=== PATIENT | male | born 1965 | race Caucasian/White ===

== ENCOUNTER → 2017-10-04 | Outpatient (CLI) | payer OTHER ==
[2017-10-04 19:12] LABS: ALBUMIN 4.2 gm/dl (3.4-5.0); ALKALINE PHOSPHATASE 63 U/L (45-117); ALT/SGPT 27 U/L (12-78); AST/SGOT 16 U/L (15-37); BLOOD UREA NITROGEN 18 mg/dl (7-18); CALCIUM 9.3 mg/dl (8.5-10.1); CARBON DIOXIDE 28 mmol/L (21-32); CHOLESTEROL 182 mg/dl (0-200); GLUCOSE 99 mg/dl (70-99); LDL CHOLESTEROL CALCULATED 96 mg/dl; POTASSIUM 4.1 mmol/L (3.5-5.1); SODIUM 138 mmol/L (136-145); TOTAL PROTEIN 7.3 gm/dl (6.4-8.2)
[2017-10-04 21:16] LABS: BASO % 0.1 %; BASO ABS # 0.01 K/uL (0-0.2); EOS % 0.4 %; EOS ABS # 0.03 K/uL (0-0.5); HEMATOCRIT 44.5 % (42-52); HEMOGLOBIN 15.5 g/dL (14.0-18.0); IG# 0.02 K/uL (0.00-0.02); LYMPH ABS # 1.57 K/uL (1.2-3.4); MEAN CELL VOLUME 85.6 fL (80-100); MEAN CORPUSCULAR HEMOGLOBIN 29.8 pg (25-34); MEAN CORPUSCULAR HGB CONC 34.8 g/dl (32-36); MONO % 10.2 %; NEUT ABS # 5.42 K/uL (1.4-6.5); PLATELET COUNT 235 K/uL (130-400); RED CELL DISTRIBUTION WIDTH CV 12.6 % (11.5-14.5); RED CELL DISTRIBUTION WIDTH SD 39.2 fL (36.4-46.3); WHITE BLOOD COUNT 7.85 K/uL (4.8-10.8)
== END | disposition home or self-care (01) ==
LOC: C.LABSPEC 18:12
PROVIDERS: ATTEND Family Medicine
DX: Z00.00 Encounter for general adult medical examination without abnormal findings (principal)

== ENCOUNTER 2019-04-15 06:53 | Observation (INO) ==
[2019-04-15] MEDS ORDERED: SODIUM CHLORIDE 0.9% 1000ML 1,000 ML IV SCH (07:19)
--- NOTE | 2019-04-15 07:27 | Emergency Department Note ---
History of Present Illness General Chief complaint: Abdominal Pain Stated complaint: ABDOMINAL PAIN Time Seen by Provider: 04/15/19 07:02 History of Present Illness Maximum Pain Intensity: 8 Patient is an otherwise healthy 54-year-old male who presents the emergency department for evaluation of right lower quadrant pain. He reports that he has had crampy intermittent pain for about a month, but his symptoms have been worsening in the last 4 to 5 days. He states that his symptoms started with a lot of joint pain about 4 weeks ago including his knees and his elbows. He saw his primary care provider Dr. Romo last week, and had labs performed. A Lyme screen at that time was negative and he was placed on a course of prednisone. He states that he is due to finish the prednisone taper this morning. He states that the joint pain has improved on the prednisone, but the right lower quadrant pain is gotten worse. He has had difficulty sleeping over the last several evenings. He states it is a constant, cramping pain. He states that it was at its worst this morning when he was getting ready for work, rating it an 8/10. He states that on occasion if he gets up to urinate voiding will alleviate some pressure. He has tried increasing his water intake drinking cranberry juice and taking ibuprofen with minimal relief. He has not noticed any changes in his bowel movements, no melena or hematochezia. He had a colonoscopy within the last 6 years which was normal. He denies noticing any rashes, lesions or bulging in the groin or the scrotal area. He has a history of a left inguinal hernia repair and states that this is not similar. Initially he thought that his pain was a pulled muscle. He denies any associated nausea or vomiting. No dysuria. No fever or chills. Home Medications Home Medications Medication Instructions Recorded Confirmed Type ibuprofen [Advil] 400 mg PO Q6H PRN 04/15/19 04/15/19 History prednisone 10 mg PO USEASDIRECTD 04/15/19 04/15/19 History Allergies Allergy/AdvReac Type Severity Reaction Status Date / Time No Known Allergies Allergy Verified 04/15/19 07:54 Past Med/Surg History Medical History (Updated 04/15/19 @ 10:21 by Soledad James) No significant past medical history (Chronic) Surgical History (Updated 02/01/20 @ 09:46 by Lacey Lewis DO) History of colonoscopy History of left inguinal hernia repair Social History Current Living Situation: Family current occupational status: employed Feels Safe at Home: Yes Smoking Status: Former smoker Review of Systems A total of 10 systems reviewed and were otherwise negative Physical Exam Vital Signs Vital Signs - 24 hr 04/15/19 06:57 04/15/19 08:29 04/15/19 09:38 Temperature 36.5 C Temperature Source Oral Pulse Rate 76 Pulse Rate [Finger] 78 86 Respiratory Rate 20 20 20 Respiratory Effort / Characteristics Non-Labored Respiratory Depth Normal Blood Pressure 142/89 H Blood Pressure [Right Arm] 152/71 H 134/79 Blood Pressure Mean 106 Blood Pressure Mean [Right Arm] 98 97 Pulse Oximetry 98 96 98 Oxygen Delivery Method Room Air Room Air Room Air Sepsis Recent Fever Within 48 Hours No Sepsis Action Taken by Nursing No Action Required CONSTITUTIONAL: Patient is a well-appearing 54-year-old male who is awake and alert and in no acute distress. EYES: Pupils equal, round, reactive to light and accommodation. EOMs intact without nystagmus. Sclera are anicteric. ENT: Tympanic membranes intact, with normal landmarks. External canals are clear. Oral and nasopharynx are clear. Mucous membranes are moist, no lesions, tongue and gums appear normal. CARDIOVASCULAR: Regular rate and rhythm, with normal S1 and S2, no murmur or gallop or rub is heard. No carotid bruits auscultated. No JVD. Peripheral pulses easy to palpable. RESPIRATORY: Breath sounds equal and clear to auscultation without wheezes, rales, or rhonchi heard. Full and equal chest expansion without accessory muscle use or retractions. GI: Bowel sounds are present. Umbilical hernia noted that is soft and reducible . Abdomen is soft, nondistended, tender to percussion over the right lower quadrant and tender to palpation on the right lower quadrant with voluntary guarding.. No organomegaly. No pulsatile masses. No rebound or referred rebound tenderness. No CVA tenderness. MUSCULOSKELETAL: Full range of motion of extremities x 4 with good strength. No cyanosis, edema, joint tenderness or swelling. No deformity. INTEGUMENTARY: No lesions or rash, normal skin turgor. NEUROLOGICAL: Alert, oriented, and cooperative. Cranial nerves, sensation and strength grossly intact. Pupils round, equal, and react to light, EOMs are full. LYMPH: No lymphadenopathy. Course Course The patient was seen and assessed as above. Old records were reviewed, including his laboratory studies from 04/06/2019. He presents the emergency department for evaluation of worsening right lower quadrant pain over the last several days. IV lock was initiated and laboratory studies were collected. He was hydrated with normal saline solution. He declined any medication for discomfort. CBC, CMP and urinalysis were ordered. CT scan of the abdomen p nelly with IV contrast was obtained. Laboratory studies noted a slightly elevated white count at 12,300 with left shift and bandemia noted. Electrolytes are within normal limits. Renal functions are normal. Transaminases are not elevated and urine microscopy is clear. CT scan of the abdomen and pelvis with IV contrast noted a markedly distended appendix containing a punctate appendicolith with surrounding inflammatory change there is a question of a small microperforation without extraluminal gas identified. Laboratory and diagnostic imaging studies were reviewed with the patient. He wa s made aware that I was going to speak with general surgery. The patient was questioned and reported that he had only had half a cup of coffee with a small amount of milk and cranberry juice around 0530 today. He had not eaten any solid food since last evening. Laboratory and diagnostic imaging studies were reviewed with attending physician and surgical consultation was placed with Dr. Robyn Solis. She presented to the emergency department to assess the patient. She will take the patient to the OR for surgical intervention later this morning. Administered Medications Ioversol (Optiray 320 100ml) 92 ml IV ONCE PRN PRN Reason: Interaction Checking Stop: 04/19/19 08:20 Last Admin: 04/15/19 08:21 Dose: 92 ml Documented by: [id number] Discontinued Medications Sodium Chloride (Nss 1000ml) 1,000 mls @ 999 mls/hr IV .Q1H1M CARIN Stop: 04/15/19 08:19 Last Infusion: 04/15/19 08:33 Dose: 0 mls/hr Documented by: [id number] Admin: 04/15/19 07:32 Dose: 999 mls/hr Documented by: [id number] Medical Decision Making Differential Diagnosis Differential diagnoses include gastroenteritis, appendicitis, mesenteric ischemia, pyelonephritis, urinary tract infection, renal colic, diverticulitis, shingles, bowel obstruction, intussusception, hernia, muscle strain, among others. Medical Records Attestation: I reviewed the patient's medical records. Home Medications Current Medication List: was personally reviewed by me Laboratory Data Attestation: I reviewed the patient's lab results. Result diagrams: 04/15/19 07:31 04/15/19 07:31 Lab Results 04/15/19 04/15/19 04/15/19 Range/Units 07:31 07:31 07:31 WBC 12.32 H (4.8-10.8) K/uL RBC 5.41 (4.7-6.1) M/uL Hgb 15.9 (14.0-18.0) g/dL Hct 46.4 (42-52) % MCV 85.8 (80-100) fL MCH 29.4 (25-34) pg MCHC 34.3 (32-36) g/dL RDW Std Deviation 39.4 (36.4-46.3) fL RDW Coeff of Ramon 12.6 (11.5-14.5) % Plt Count 277 (130-400) K/uL MPV 9.6 (7.4-10.4) fL Immature Gran % (Auto) 0.4 % Neut % (Auto) 77.8 % Lymph % (Auto) 10.7 % Braxton % (Auto) 10.6 % Eos % (Auto) 0.4 % Baso % (Auto) 0.1 % Immature Gran # (Auto) 0.05 H (0.00-0.02) K/uL Neut # (Auto) 9.58 H (1.4-6.5) K/uL Lymph # (Auto) 1.32 (1.2-3.4) K/uL Braxton # (Auto) 1.31 H (0.11-0.59) K/uL Eos # (Auto) 0.05 (0-0.5) K/uL Baso # (Auto) 0.01 (0-0.2) K/uL Sodium 137 (136-145) mmol/L Potassium 4.0 (3.5-5.1) mmol/L Chloride 105 (98-107) mmol/L Carbon Dioxide 27 (21-32) mmol/L Anion Gap 5.0 (3-11) BUN 18 (7-18) mg/dl Creatinine 0.99 (0.6-1.4) mg/dl Est Cr Clr Drug Dosing 86.0 ml/min Est GFR ( Amer) 98.3 Est GFR (Non-Af Amer) 84.8 BUN/Creatinine Ratio 18.3 (10-20) Glucose 117 H (70-99) mg/dl Calcium 9.5 (8.5-10.1) mg/dl Total Bilirubin 0.4 (0.2-1) mg/dl AST 7 L (15-37) U/L ALT 19 (12-78) U/L Alkaline Phosphatase 85 (45-117) U/L Total Protein 7.1 (6.4-8.2) gm/dl Albumin 3.6 (3.4-5.0) gm/dl Globulin 3.5 (2.5-4.0) gm/dl Albumin/Globulin Ratio 1.0 (0.9-2) Urine Color Dark Yellow Urine Appearance Clear (Clear) Urine pH 5.0 (4.5-7.5) Ur Specific [place] 1.030 (1.000-1.030) Urine Protein Trace H (Negative) Urine Glucose (UA) Negative (Negative) Urine Ketones Negative (Negative) Urine Blood Negative (Negative) Urine Nitrite Negative (Negative) Urine Bilirubin Negative (Negative) Urine Urobilinogen Negative (Negative) Ur Leukocyte Esterase Negative (Negative) Urine WBC (Auto) 1-5 (0-5) /hpf Urine RBC (Auto) 0-4 (0-4) /hpf U Hyaline Cast (Auto) 1-5 (0-5) /lpf U Epithel Cells (Auto) 5-10 H (0-5) /lpf Urine Bacteria (Auto) Negative (Negative) Imaging Data Attestation: I personally reviewed and interpreted this imaging study as follows: Radiologist's Impression: ABDOMEN AND PELVIS CT WITH IV CONTRAST CT DOSE: 360.64 mGy.cm HISTORY: RLQ PAIN X ONE WEEK TECHNIQUE: Multiaxial CT images of the abdomen and pelvis were performed following the use of intravenous contrast. A dose lowering technique was utilized adhering to the principles of ALARA. COMPARISON STUDY: None. FINDINGS: A 6 mm nodule within the base of the right lower lobe on image 22. A few bibasilar linear densities consistent with subsegmental atelectasis. No pneumoperitoneum. No pneumatosis. No suspicious lytic are blastic osseous lesions. Small fat-containing umbilical hernia. Normal bladder. Trace pelvic free fluid. A 6 mm hypodense lesion within the left hepatic lobe. This is technically too small to characterize but favors a cyst. The gallbladder, pancreas, spleen, adrenal glands, and left kidney are unremarkable. There are a few subcentimeter hypodense lesions within the right kidney which are also too small to characterize. No hydronephrosis. No retroperitoneal lymphadenopathy. Mild calcified plaque within the normal caliber abdominal aorta. No evidence for bowel obstruction. Markedly distended appendix containing a punctate appendicolith with the tip measuring up to 2.8 cm. There is surrounding inflammatory change. Findings are consistent with acute appendicitis. The distended tip likely represents a small periappendiceal abscess in the setting of microperforation. However, there is no extraluminal gas identified. IMPRESSION: 1. Markedly distended appendix containing a punctate appendicolith with the tip measuring up to 2.8 cm. There is surrounding inflammatory change. Findings are consistent with acute appendicitis. The distended tip likely represents a small periappendiceal abscess in the setting of microperforation. However, there is no extraluminal gas identified. 2. A 6 mm nodule within the base of the right lower lobe. Blood Pressure Blood Pressure Findings: Elevated blood pressure Blood Pressure Disposition: elevated BP felt to be situational MDM Narrative See ED course. Impression & Plan Acute appendicitis Discharge Plan Visit Data Chief Complaint: Abdominal Pain Stated Complaint: ABDOMINAL PAIN ED Provider: Tu [facility] ED Midlevel Provider: Soledad James Discharge Problem: Acute appendicitis Patient Disposition: Being Evaluated by Surgeon Forms Stand Alone Forms: Call Back Authorization, [facility] Prescriptions Prescriptions: No Action prednisone 10 mg tablet 10 mg PO USEASDIRECTD RF: 0 ibuprofen [Advil] 200 mg Tablet 400 mg PO Q6H PRN (Reason: Pain) RF: 0 Referrals Referrals: Marcos Romo DO [Primary Care Provider] - Discharge Problem: Acute appendicitis Qualifiers: Acute appendicitis type: with localized peritonitis Appendicitis gangrene presence: without gangrene Appendicitis perforation presence: with perforation Appendicitis abscess presence: without abscess Qualified Code(s): K35.32 - Acute appendicitis with perforation and localized peritonitis, without abscess
[2019-04-15 07:45] LABS: Basophils # (auto) 0.01 K/uL (0-0.2); Basophils % (auto) 0.1 %; Eosinophils # (auto) 0.05 K/uL (0-0.5); Eosinophils % (auto) 0.4 %; Hematocrit (blood only) 46.4 % (42-52); Hemoglobin 15.9 g/dL (14.0-18.0); Immature Granulocytes # (auto) 0.05 K/uL (0.00-0.02); Immature Granulocytes % (auto) 0.4 %; Lymphocytes # (auto) 1.32 K/uL (1.2-3.4); Lymphocytes % (auto) 10.7 %; Mean Corpuscular Hemoglobin 29.4 pg (25-34); Mean Corpuscular Hgb Conc 34.3 g/dL (32-36); Mean Corpuscular Volume 85.8 fL (80-100); Mean Platelet Volume 9.6 fL (7.4-10.4); Monocytes # (auto) 1.31 K/uL (0.11-0.59); Monocytes % (auto) 10.6 %; Neutrophils # (auto) 9.58 K/uL (1.4-6.5); Neutrophils % (auto) 77.8 %; Platelet Count 277 K/uL (130-400); RDW Coefficient of Variation 12.6 % (11.5-14.5); RDW Standard Deviation 39.4 fL (36.4-46.3); Red Blood Count 5.41 M/uL (4.7-6.1); White Blood Count 12.32 K/uL (4.8-10.8)
[2019-04-15 08:02] LABS: Albumin Level 3.6 gm/dl (3.4-5.0); BUN Creatinine Ratio 18.3 (10-20); Calcium 9.5 mg/dl (8.5-10.1); Est GFR (African American) 98.3; Est GFR (Non-African American) 84.8
[2019-04-15 08:05] LABS: Bilirubin,Total 0.4 mg/dl (0.2-1); Globulin 3.5 gm/dl (2.5-4.0); Total Protein 7.1 gm/dl (6.4-8.2)
[2019-04-15] MEDS ORDERED: IOVERSOL 100ml IV PRN (08:21)
[2019-04-15 08:33] LABS: Appearance Urine Clear (Clear); Bacteria Urine Automated Negative (Negative); Bilirubin Urine Negative (Negative); Blood Urine Negative (Negative); Color Urine Dark Yellow; Glucose Urine UA Negative (Negative); Ketones Urine Negative (Negative); Leukocyte Esterase Urine Negative (Negative); Nitrite Urine Negative (Negative); Protein Urine Trace (Negative); RBC Urine Automated 0-4 /hpf (0-4); Urobilinogen Urine Negative (Negative)
--- NOTE | 2019-04-15 08:50 | CT Scan Report ---
ABDOMEN AND PELVIS CT WITH IV CONTRAST CT DOSE: 360.64 mGy.cm HISTORY: RLQ PAIN X ONE WEEK TECHNIQUE: Multiaxial CT images of the abdomen and pelvis were performed following the use of intrave nous contrast. A dose lowering technique was utilized adhering to the principles of ALARA. COMPARISON STUDY: None. FINDINGS: A 6 mm nodule within the base of the right lower lobe on image 22. A few bibasilar linear d ensities consistent with subsegmental atelectasis. No pneumoperitoneum. No pneumatosis. No suspicious lytic are blastic osseous lesions. Small fat-containing umbilical hernia. Normal bladder. Trace pelv ic free fluid. A 6 mm hypodense lesion within the left hepatic lobe. This is technically too small to characterize but favors a cyst. The gallbladder, pancreas, spleen, adrenal glands, and left kidney a re unremarkable. There are a few subcentimeter hypodense lesions within the right kidney which are al so too small to characterize. No hydronephrosis. No retroperitoneal lymphadenopathy. Mild calcified p laque within the normal caliber abdominal aorta. No evidence for bowel obstruction. Markedly distende d appendix containing a punctate appendicolith with the tip measuring up to 2.8 cm. There is surround ing inflammatory change. Findings are consistent with acute appendicitis. The distended tip likely re presents a small periappendiceal abscess in the setting of microperforation. However, there is no ext raluminal gas identified. IMPRESSION: 1. Markedly distended appendix containing a punctate appendicolith with the tip measuring up to 2.8 c m. There is surrounding inflammatory change. Findings are consistent with acute appendicitis. The dis tended tip likely represents a small periappendiceal abscess in the setting of microperforation. Locke marilee, there is no extraluminal gas identified. 2. A 6 mm nodule within the base of the right lower lobe. Please refer to below summary of Fleischner criteria recommendations for follow-up of incidental CT n odules (Julio Almodovar, Guidelines for management of small pulmonary nodules detected on CT scans: A sta tement from the Fleischner Society, Radiology 237: [phone].) SOLID NODULES Solitary nodule size: <6 mm * Low risk patients: no follow-up needed * high risk patients: optional CT at 12 months Solitary nodule size: 6-8 mm * Low risk patients: follow-up at 6-12 months, then consider further follow-up at 18-24 months * high risk patients: initial follow-up CT at 6-12 months and then at 18-24 months if no change Solitary nodule size: >8 mm * either low or high risk patients - consider follow-up CT at 3 months, and/or CT-PET, and/or biopsy Multiple nodules size: <6 mm * Low risk patients: no routine follow-up * high risk patients: optional CT at 12 months Multiple nodules size: 6-8 mm * Low risk patients: follow-up at 3-6 months, then consider further follow-up at 18-24 months * high risk patients: follow-up at 3-6 months, then at 18-24 months if no change Multiple nodules size: >8 mm * Low risk patients: follow-up at 3-6 months, then consider further follow-up at 18-24 months * high risk patients: follow-up at 3-6 months, then at 18-24 months if no change Note: newly detected indeterminate nodule in persons 35 years of age or older. * Low risk patients: minimal or absent history of smoking and/or other known risk factors * high risk patients: history of smoking or of other known risk factors (e.g. first degree relative with lung cancer, or exposure to asbestos, radon, uranium) * if a nodule up to 8 mm is partly solid or is ground glass further follow-up is required after 24 m onths to exclude possible slow growing adenocarcinoma (IAMEE) SUBSOLID NODULES Solitary pure ground-glass nodule * nodule size <6 mm - no CT follow-up required * nodule size >=6 mm - follow-up CT at 6-12 months, then every 2 years until 5 years Solitary part-solid nodule * nodule size <6 mm - no CT follow-up required * nodule size >=6 mm - follow-up CT at 3-6 months. If unchanged, and solid component remains <6 mm, then annual follow-up for 5 years Multiple subsolid nodules * nodule size <6 mm - follow-up CT at 3-6 months, consider further follow-up at 2 and 4 years if sta ble * nodule size >=6 mm - follow-up CT at 3-6 months, subsequent management based on the most suspiciou s nodule(s) ACT 112: Negative or not required by law. Electronically signed by: Joshua Mora M.D. 04/15/2019 8:49 AM
--- NOTE | 2019-04-15 09:27 | History & Physical Report ---
Date of Service April 15, 2019 Assessment & Plan (1) Acute appendicitis: 54 yr old man with acute appendicitis. Discussed laparoscopic appendectomy with risks of bleeding, infection, conversion to open, postop ileus/ abscess. Expected 1-2 week recovery period reviewed. He has an asymptomatic umbilical hernia - option of simultaneous repair reviewed but would be unable to use mesh. As it does not bother him, he prefers to leave it alone. Consent signed. For OR today. Present on Admission?: Yes (2) Lung nodule: Found on CT scan. Discussed with pt need for f/u chest CT and then imaging f/u as per guidelines. He should discuss this with his pcp. Present on Admission?: Yes History of Present Illness Primary Care Provider: Marcos Romo Knees and joints aching for the past few weeks - given a steroid burst and is just finishing prednisone. Most of the symptoms resolved but still left with pain around the right hip pain, cramping pain worsened this morning. Could not button his pants. No vomiting, nausea. Crampy waves of pain, feels more distended, felt chilled/ has shakes. Had a bowel movement this morning but was less than normal. No similar symptoms in the past. Had a 1/2 cup of coffee around 5:30 am, 1/2 cranberry juice around the same time. Allergies Allergy/AdvReac Type Severity Reaction Status Date / Time No Known Allergies Allergy Verified 04/15/19 07:54 Home Medications Home Medications Medication Instructions Recorded Confirmed Type ibuprofen [Advil] 400 mg PO Q6H PRN 04/15/19 04/15/19 History prednisone 10 mg PO USEASDIRECTD 04/15/19 04/15/19 History Past Med/Surg History Medical History No significant past medical history (Chronic) Surgical History History of left inguinal hernia repair Social History Current Living Situation: Family current occupational status: employed Feels Safe at Home: Yes Smoking Status: Former smoker Review of Systems Review of Systems: All systems reviewed & are unremarkable except as noted in HPI & below Physical Exam Constitutional: WD/WN, vitals as above ENMT: Ears: no hearing impairment Neck: normal visual inspection Respiratory: normal respiratory effort, lungs clear to auscultation Cardiovascular: RRR, no murmur, no edema Gastrointestinal (Abdomen): Inspection/Auscultation: abdomen normal to inspection and normal bowel sounds; abdomen not distended Pe rcussion/Palpation: + abdomen tender (RLQ over McBurneys point), abdomen soft and + hernia (partially incarcerated umbilical hernia); no guarding Musculoskeletal: no cyanosis or clubbing, extremities motor strength 5/5 Skin: no rashes, warm and dry Neurologic: moves all extremities; no focal motor deficits Psychiatric: A+Ox3, euthymic affect Results & Data Vital Signs (Past 12 Hours) Vital Signs Temp Pulse Pulse Resp BP BP Pulse Ox 04/15/19 08:29 78 20 152/71 H 96 04/15/19 06:57 36.5 C 76 20 142/89 H 98 Laboratory Results 04/15/19 04/15/19 04/15/19 Range/Units 07:31 07:31 07:31 WBC 12.32 H (4.8-10.8) K/uL RBC 5.41 (4.7-6.1) M/uL Hgb 15.9 (14.0-18.0) g/dL Hct 46.4 (42-52) % MCV 85.8 (80-100) fL MCH 29.4 (25-34) pg MCHC 34.3 (32-36) g/dL RDW Std Deviation 39.4 (36.4-46.3) fL RDW Coeff of Ramon 12.6 (11.5-14.5) % Plt Count 277 (130-400) K/uL MPV 9.6 (7.4-10.4) fL Immature Gran % (Auto) 0.4 % Neut % (Auto) 77.8 % Lymph % (Auto) 10.7 % [place] % (Auto) 10.6 % Eos % (Auto) 0.4 % Baso % (Auto) 0.1 % Immature Gran # (Auto) 0.05 H (0.00-0.02) K/uL Neut # (Auto) 9.58 H (1.4-6.5) K/uL Lymph # (Auto) 1.32 (1.2-3.4) K/uL [place] # (Auto) 1.31 H (0.11-0.59) K/uL Eos # (Auto) 0.05 (0-0.5) K/uL Baso # (Auto) 0.01 (0-0.2) K/uL Sodium 137 (136-145) mmol/L Potassium 4.0 (3.5-5.1) mmol/L Chloride 105 (98-107) mmol/L Carbon Dioxide 27 (21-32) mmol/L Anion Gap 5.0 (3-11) BUN 18 (7-18) mg/dl Creatinine 0.99 (0.6-1.4) mg/dl Est Cr Clr Drug Dosing 86.0 ml/min Est GFR ( Amer) 98.3 Est GFR (Non-Af Amer) 84.8 BUN/Creatinine Ratio 18.3 (10-20) Glucose 117 H (70-99) mg/dl Calcium 9.5 (8.5-10.1) mg/dl Total Bilirubin 0.4 (0.2-1) mg/dl AST 7 L (15-37) U/L ALT 19 (12-78) U/L Alkaline Phosphatase 85 (45-117) U/L Total Protein 7.1 (6.4-8.2) gm/dl Albumin 3.6 (3.4-5.0) gm/dl Globulin 3.5 (2.5-4.0) gm/dl Albumin/Globulin Ratio 1.0 (0.9-2) Urine Color Dark Yellow Urine Appearance Clear (Clear) Urine pH 5.0 (4.5-7.5) Ur Specific [place] 1.030 (1.000-1.030) Urine Protein Trace H (Negative) Urine Glucose (UA) Negative (Negative) Urine Ketones Negative (Negative) Urine Blood Negative (Negative) Urine Nitrite Negative (Negative) Urine Bilirubin Negative (Negative) Urine Urobilinogen Negative (Negative) Ur Leukocyte Esterase Negative (Negative) Urine WBC (Auto) 1-5 (0-5) /hpf Urine RBC (Auto) 0-4 (0-4) /hpf U Hyaline Cast (Auto) 1-5 (0-5) /lpf U Epithel Cells (Auto) 5-10 H (0-5) /lpf Urine Bacteria (Auto) Negative (Negative) Diagnostic Findings FINDINGS: A 6 mm nodule within the base of the right lower lobe on image 22. A few bibasilar linear densities consistent with subsegmental atelectasis. No pneumoperitoneum. No pneumatosis. No suspicious lytic are blastic osseous lesions. Small fat-containing umbilical hernia. Normal bladder. Trace pelvic free fluid. A 6 mm hypodense lesion within the left hepatic lobe. This is technically too small to characterize but favors a cyst. The gallbladder, pancreas, spleen, adrenal glands, and left kidney are unremarkable. There are a few subcentimeter hypodense lesions within the right kidney which are also too small to characterize. No hydronephrosis. No retroperitoneal lymphadenopathy. Mild calcified plaque within the normal caliber abdominal aorta. No evidence for bowel obstruction. Markedly distended appendix containing a punctate appendicolith with the tip measuring up to 2.8 cm. There is surrounding inflammatory change. Findings are consistent with acute appendicitis. The distended tip likely represents a small periappendiceal abscess in the setting of microperforation. However, there is no extraluminal gas identified. IMPRESSION: 1. Markedly distended appendix containing a punctate appendicolith with the tip measuring up to 2.8 cm. There is surrounding inflammatory change. Findings are consistent with acute appendicitis. The distended tip likely represents a small periappendiceal abscess in the setting of microperforation. However, there is no extraluminal gas identified. 2. A 6 mm nodule within the base of the right lower lobe.
--- NOTE | 2019-04-15 09:47 | Anesthesiology Consultation ---
Date of Service April 15, 2019 Assessment & Plan Chart Review Chart Review: Acceptable Risk for Surgery Consults Requested none ASA [id number] Proposed Anesthesia Anesthesia Type: General (RSI) Risk / Benefits Reviewed With: PT / POA / Parent / Guardian, Accepts Plan and Informed Consent Obtained History Surgery Operation Date: 04/15/19 12:00 Proposed Procedures p Laparoscopic Appendectomy - Robyn Solis MD Height/Weight Height: 5 ft 10 in Weight: 78.7 kg Allergies Allergy/AdvReac Type Severity Reaction Status Date / Time No Known Allergies Allergy Verified 04/15/19 07:54 Medications Home Medications Medication Instructions Recorded Confirmed Last Taken ibuprofen [Advil] 400 mg PO Q6H PRN 04/15/19 04/15/19 04/15/19 05:50 prednisone 10 mg PO USEASDIRECTD 04/15/19 04/15/19 04/14/19 10 mg Active Medications Generic Name Dose Route Start Last Admin Trade Name Freq PRN Reason Stop Dose Admin Ioversol 92 ml 04/15/19 08:21 04/15/19 08:21 Optiray 320 100ml IV 04/19/19 08:20 92 ml ONCE PRN Administration Interaction Checking NPO Date Last Intake of Fluids: 04/15/19 Time Last Intake of Fluids: 05:45 Last Intake of Fluids Comment: coffee and cranberry juice, milk Date Last Intake of Solids: 04/14/19 Time Last Intake of Solids: 21:00 Last Intake of Solids Comment: pb jelly Past Medical History Medical History (Updated 04/15/19 @ 10:21 by Soledad James) No significant past medical history (Chronic) Exercise / Class Metabolic Activity II 4-5 Yardwork/Stairs/Walk up hill Past Surgical History Surgical History (Updated 04/15/19 @ 09:46 by Lacey Lewis DO) History of colonoscopy History of left inguinal hernia repair Past Anesthesia History No Hx of Anesthesia Complications and No Family Hx of Anesthesia Complications History of PONV No Hx of PONV and No Hx of Motion Sickness Social History Smoking Status: Former smoker Physical Exam Vital Signs Last Vital Signs Temp 36.5 C 04/15/19 06:57 Pulse 89 04/15/19 11:10 Resp 20 04/15/19 11:10 BP 143/93 H 04/15/19 11:10 Pulse Ox 98 04/15/19 11:10 ENMT Mouth: no TMJ abnormality Thyromental Distance: > or= 3.5 Finger Breadths Mallampati Class: II 3 front caps slightly loose, pt aware damage to teeth may occur Neck normal visual inspection and trachea midline; neck extension not limited Respiratory normal respiratory effort Auscultation: lungs clear to auscultation bilaterally Cardiovascular Rate/Rhythm: regular rate and regular rhythm Heart Sounds: no murmur Musculoskeletal Spine: normal cervical ROM Extremities: full ROM of extremities Neurologic moves all extremities Psychiatric Orientation: alert and oriented x 3 Testing Laboratory Results 04/15/19 07:31 04/15/19 07:31 Urine Color Dark Yellow 04/15/19 07:31 Urine Appearance Clear (Clear) 04/15/19 07:31 Urine pH 5.0 (4.5-7.5) 04/15/19 07:31 Ur Specific Victor 1.030 (1.000-1.030) 04/15/19 07:31 Urine Protein Trace (Negative) H 04/15/19 07:31 Urine Glucose (UA) Negative (Negative) 04/15/19 07:31 Urine Ketones Negative (Negative) 04/15/19 07:31 Urine Nitrite Negative (Negative) 04/15/19 07:31 Ur Leukocyte Esterase Negative (Negative) 04/15/19 07:31 Urine WBC (Auto) 1-5 /hpf (0-5) 04/15/19 07:31 Urine RBC (Auto) 0-4 /hpf (0-4) 04/15/19 07:31 U Hyaline Cast (Auto) 1-5 /lpf (0-5) 04/15/19 07:31 U Epithel Cells (Auto) 5-10 /lpf (0-5) H 04/15/19 07:31 Urine Bacteria (Auto) Negative (Negative) 04/15/19 07:31 Electrocardiogram Date: 04/15/19 Findings: + NSR @ (80bpm)
[2019-04-15] MEDS ORDERED: PROPOFOL IV EMULSION 10 MG/ML 20 ML VIAL IV ONE (10:26)
[2019-04-15] MEDS ORDERED: NEOSTIGMINE METHYLSULFATE 5 MG/5 ML SYR ONE (10:26)
[2019-04-15] MEDS ORDERED: LIDOCAINE HCL 2% 2 ML VIAL/AMP(20MG/ML) INFIL ONE (10:26)
[2019-04-15] MEDS ORDERED: DEXAMETHASONE SOD INJ 4 MG/ML VIAL ONE (10:26)
[2019-04-15] MEDS ORDERED: MIDAZOLAM HCL 1 MG/ML 2ML VIAL ONE (10:26)
[2019-04-15] MEDS ORDERED: GLYCOPYRROLATE 0.2 MG/ML VIAL ONE (10:26)
[2019-04-15] MEDS ORDERED: ONDANSETRON INJ 2 MG/ML 2 ML VIAL ONE (10:26)
[2019-04-15] MEDS ORDERED: fentaNYL citrate 100 MCG/2 ML VIAL ONE (10:26)
[2019-04-15] MEDS ORDERED: fentaNYL citrate 100 MCG/2 ML VIAL IV PRN (10:37)
[2019-04-15] MEDS ORDERED: MoRPHine SULFATE 10 MG/ML CARP/VIAL IV PRN (10:37)
[2019-04-15] MEDS ORDERED: MEPERIDINE HCL 25 MG/ML CARP IV PRN (10:37)
[2019-04-15] MEDS ORDERED: ATROPINE SULFATE 0.1 MG/ML 10ML SYR IV PRN (10:37)
[2019-04-15] MEDS ORDERED: METOCLOPRAMIDE HCL INJ 5 MG/ML 2 ML VIAL IV PRN (10:37)
[2019-04-15] MEDS ORDERED: ONDANSETRON INJ 2 MG/ML 2 ML VIAL IV PRN ×2 (10:37→14:04)
[2019-04-15] MEDS ORDERED: PROMETHAZINE HCL 12.5 MG in SODIUM CHLORIDE 0.9% 50 ML IV PRN (10:37)
[2019-04-15] MEDS ORDERED: ePHEDrine sulfate 50 MG/ML AMP IV PRN (10:37)
[2019-04-15] MEDS ORDERED: BUPIVACAINE 0.5 % 5 MG/1 ML MPF 30ML VIAL ONE (11:16)
[2019-04-15] MEDS ORDERED: cefOXitin 2,000 MG in DEXTROSE 5% 50 ML IV STA (11:28)
[2019-04-15] MEDS ORDERED: METOCLOPRAMIDE HCL INJ 5 MG/ML 2 ML VIAL ONE (12:10)
[2019-04-15] MEDS ORDERED: SUCCINYLCHOLINE CHLORIDE 20 MG/ML 10 ML VIAL ONE (12:20)
[2019-04-15] MEDS ORDERED: ROCURONIUM BROMID 50MG/5ML SYR ONE (12:20)
--- NOTE | 2019-04-15 13:12 | Operative Report ---
Post Operative Report Pre & Post Diagnosis Operation Date: 04/15/19 12:00 Pre-Op Diagnosis: Acute appendicitis Post-Op Diagnosis: Acute appendicitis I identified the patient and participated in the time-out.: Yes Procedure Operation Date: 04/15/19 12:00 Actual Procedures p Laparoscopic Appendectomy(Not Applicable) - Robyn Solis MD Surgeon Robyn Solis MD Sports Physiologist none Estimated Blood Loss 5 Findings See Below (perforated appendicitis with abscess eroding into right anterior abdominal wall) Specimens appendix Description of Procedure see dictated operative report I attest to the content of the Intraoperative Record and any orders documented therein. Any exceptions are noted below.
[2019-04-15] MEDS ORDERED: ACETAMINOPHEN 1000 MG/100 ML IV IV ONE (13:13)
--- NOTE | 2019-04-15 13:43 | Anesthesiology Progress Note ---
Date of Service April 15, 2019 Anesthesia Post Procedure Vital Signs Vital Signs: Temp Pulse Pulse Pulse Resp BP BP 04/15/19 13:30 74 18 146/65 H 04/15/19 13:20 76 16 147/79 H 04/15/19 13:14 37.3 C 76 15 133/67 04/15/19 11:10 89 20 143/93 H 04/15/19 09:38 86 20 134/79 04/15/19 08:29 78 20 152/71 H 04/15/19 06:57 36.5 C 76 20 142/89 H Pulse Ox 04/15/19 13:30 100 04/15/19 13:20 100 04/15/19 13:14 100 04/15/19 11:10 98 04/15/19 09:38 98 04/15/19 08:29 96 04/15/19 06:57 98 Pain Intensity Abdomen: Pain Intensity: 8 Transfer of Care Handoff Completed per policy Notes Mental Status: alert / awake / arousable and participated in evaluation Patient Amnestic to Procedure: Yes Nausea / Vomiting: adequately controlled Pain: adequately controlled Airway Patency, RR, SpO2: stable & adequate BP & HR: stable & adequate Hydration State: stable & adequate Anesthetic Complications: no major complications apparent, see Notes below and Pt Satisfied with anesthetic care Notes: Patient was a difficult airway but easy mask. Ultimate successful intubation with glide scope #4 with Eschmann stylette secondary to poor mouth opening and anterior glottis. The patient received a difficult intubation letter and a discussion about his intubation took place after he was awake and recovery. He was advised to obtain a medic alert bracelet for emergency purposes in the future. In addition he was advised to provide each anesthesia provider who he encounters for medical care in the future with a copy of the difficult airway letter. The patient expresses understanding and all questions were answered.
[2019-04-15] MEDS ORDERED: IBUPROFEN 200 MG TAB PO PRN (14:04)
[2019-04-15] MEDS ORDERED: ACETAMINOPHEN 325 MG TAB PO PRN (14:04)
[2019-04-15] MEDS ORDERED: KETOROLAC 30 MG/ML VIAL IV PRN ×2 (14:04)
[2019-04-15] MEDS ORDERED: MoRPHine SULFATE 4 MG/ML 1 ML CARP\\VIAL IV PRN (14:04)
[2019-04-15] MEDS ORDERED: OXYCODONE/ACETAMINOPHEN 5mg/325mg TAB PO PRN ×2 (14:04)
[2019-04-15] MEDS ORDERED: MoRPHine SULFATE 2 MG/ML CARP IV PRN ×2 (14:04)
[2019-04-15] MEDS: LACTATED RINGER'S 1,000 ML IV SCH ×2 (18:13→23:32)
--- NOTE | 2019-04-15 21:41 | Operative Report ---
DATE OF OPERATION: 04/15/2019 PREOPERATIVE DIAGNOSIS: Acute appendicitis. POSTOPERATIVE DIAGNOSIS: Acute perforated appendicitis. OPERATIVE PROCEDURE: Laparoscopic appendectomy. SURGEON: Dr. Robyn Solis. BISCUIT PACKER: None. ANESTHESIA: General endotracheal anesthesia, ASA class 2E. ESTIMATED BLOOD LOSS: 5 mL. IV FLUIDS: 1200 mL. SPECIMENS: Appendix. DRAINS: None. OPERATIVE FINDINGS: Perforated appendicitis with walled off abscess eroding into the anterior abdominal wall and right lower quadrant, evidence of dilated bowel. INDICATIONS: The patient is a 54-year-old gentleman who presented with signs and symptoms of acute appendicitis that had been ongoing for some time. CT scan was suggestive of a possible microperforation. He was counseled regarding the need for laparoscopic appendectomy. He consented to proceed. DESCRIPTION OF PROCEDURE: The patient received Mefoxin preoperatively. After the induction of general endotracheal anesthesia, he had placement of sequential compression devices. He had voided just prior to the procedure. His abdomen was clipped and then sterilely prepped and draped and he had been positioned with his left arm tucked. He was placed in Trendelenburg. He did have an umbilical hernia, which he did not desire to have repaired. Thus, the skin was grasped in the right upper quadrant and a small skin incision made. The Veress needle was placed into the peritoneal cavity. This was tested with the saline drop test. Pneumoperitoneum was established. Initial pressure was 3 mmHg and this was taken up to 15 mmHg. A 5 mm trocar was placed under direct vision with camera through the trocar. Once the abdomen was entered, there was a significant bowel dilation noted. The patient was positioned in further Trendelenburg to try to get the bowel out of the way. There was inflammatory adhesive fibrinous change in the right lower quadrant with the appendix adhesed to the right lower abdominal wall. Two additional trocars were placed, a 12 in the left lower quadrant and a 5 mm in the midline pubic area. This was done under direct vision. All 3 sites have been numbed with 0.5% Marcaine prior to the procedure. The dense adhesions to the abdominal wall were then bluntly taken down. In doing so, a 3 cm pus pocket was encountered and pus drained. This was suctioned. The appendix and inflammatory changes were ultimately able to be peeled off of the anterior abdominal wall. The appendix base was within normal limits on the cecum. This was divided with a firing of the ANTONELLA purple load stapler. The appendiceal mesentery was sequentially taken with firings of the ANTONELLA ramirez load stapler. The appendix was placed in an Endobag and removed through the left lower quadrant incision. The abdomen was irrigated with 2 liters of saline until the effluent was clear. The trocars were removed. The fascia of the left lower quadrant incision was closed with 0 Vicryl stitches placed anteriorly. The skin of all 3 incisions closed with running subcuticular 4-0 Vicryl sutures. Steri-Strip sterile dressings were applied. He was awakened and taken to recovery in stable condition. I attest to the content of the Intraoperative Record and any orders documented therein. Any exception s are noted below.
[2019-04-16] MEDS: LACTATED RINGER'S 1,000 ML IV SCH ×2 (00:10→05:21)
[2019-04-16 06:08] LABS: Basophils # (auto) 0.01 K/uL (0-0.2); Hematocrit (blood only) 41.2 % (42-52); Hemoglobin 14.1 g/dL (14.0-18.0); Immature Granulocytes # (auto) 0.07 K/uL (0.00-0.02); Immature Granulocytes % (auto) 0.3 %; Lymphocytes # (auto) 1.11 K/uL (1.2-3.4); Lymphocytes % (auto) 5.3 %; Mean Corpuscular Hemoglobin 28.8 pg (25-34); Mean Corpuscular Hgb Conc 34.2 g/dL (32-36); Mean Corpuscular Volume 84.1 fL (80-100); Mean Platelet Volume 9.4 fL (7.4-10.4); Monocytes # (auto) 1.37 K/uL (0.11-0.59); Monocytes % (auto) 6.5 %; Neutrophils # (auto) 18.47 K/uL (1.4-6.5); Neutrophils % (auto) 87.9 %; Platelet Count 291 K/uL (130-400); RDW Coefficient of Variation 12.5 % (11.5-14.5); RDW Standard Deviation 38.3 fL (36.4-46.3); White Blood Count 21.03 K/uL (4.8-10.8)
[2019-04-16 06:34] LABS: BUN Creatinine Ratio 13.6 (10-20); Calcium 8.8 mg/dl (8.5-10.1); Creatinine Clr Calc Pharmacy 89.6 ml/min; Est GFR (African American) 103.3; Est GFR (Non-African American) 89.1; Potassium 4.1 mmol/L (3.5-5.1)
--- NOTE | 2019-04-16 09:02 | Surgery Progress Note ---
Date of Service April 16, 2019 Assessment & Plan (1) Acute appendicitis: s/p lap appendectomy for perforated appendicitis. Overall looks very well. WBC count elevated (not unexpected given pus/ abscess) - will continue to treat with PO antibiotics at discharge. Stable for discharge today. Postop instructions reviewed with patient and (latter via telephone). Subjective Feels well. Not requiring pain meds. No nausea. Tolerating diet. Review of Systems Review of Systems: All systems reviewed & are unremarkable except as noted in HPI & below Physical Exam Constitutional: WD/WN, vitals as above Respiratory: normal respiratory effort, lungs clear to auscultation Cardiovascular: RRR, no murmur, no edema Gastrointestinal (Abdomen): Inspection/Auscultation: + abdomen distended (mild) and normal bowel sounds Percussion/Palpation: abdomen soft; abdomen nontender and no guarding dressings dry Neurologic: moves all extremities; no focal motor deficits Results & Data Vital Signs (Past 12 Hours) Vital Signs Temp Pulse Resp BP BP Pulse Ox 04/16/19 07:51 36.8 C 56 L 18 128/69 96 04/16/19 03:40 36.8 C 85 16 130/70 93 04/15/19 22:59 37.2 C 57 L 16 132/78 98 (1) Acute appendicitis Acute appendicitis type: with localized peritonitis Appendicitis abscess presence: without abscess Appendicitis gangrene presence: without gangrene Appendicitis perforation presence: with perforation Qualified Code(s): K35.32 - Acute appendicitis with perforation and localized peritonitis, without abscess
--- NOTE | 2019-04-16 09:02 | Discharge Summary ---
Date of Service April 16, 2019 Admission HPI Per Admitting Provider Knees and joints aching for the past few weeks - given a steroid burst and is just finishing prednisone. Most of the symptoms resolved but still left with pain around the right hip pain, cramping pain worsened this morning. Could not button his pants. No vomiting, nausea. Crampy waves of pain, feels more distended, felt chilled/ has shakes. Had a bowel movement this morning but was less than normal. No similar symptoms in the past. Had a 1/2 cup of coffee around 5:30 am, 1/2 cranberry juice around the same time. Admission Exam (Per Admitting) Constitutional WD/WN, vitals as above ENMT Ears: no hearing impairment Neck normal visual inspection Respiratory normal respiratory effort, lungs clear to auscultation Cardiovascular RRR, no murmur, no edema Gastrointestinal (Abdomen) Inspection/Auscultation: abdomen normal to inspection, + abdomen distended (mild) and normal bowel sounds Percussion/Palpation: abdomen soft and + hernia (partially incarcerated umbilical hernia); abdomen nontender and no guarding Musculoskeletal no cyanosis or clubbing, extremities motor strength 5/5 Skin no rashes, warm and dry Neurologic moves all extremities; no focal motor deficits Psychiatric A+Ox3, euthymic affect Discharge Data Procedures Performed Operation Date: 04/15/19 12:00 Actual Procedures p Laparoscopic Appendectomy(Not Applicable) - Robyn Solis MD Hospital Course (1) Acute appendicitis: s/p lap appendectomy for perforated appendicitis. Overall looks very well. WBC count elevated (not unexpected given pus/ abscess) - will continue to treat with PO antibiotics at discharge. Stable for discharge today. Postop instructions reviewed with patient and (latter via telephone).
--- NOTE | 2019-04-16 11:39 | Electrocardiogram Report ---
Test Reason : Blood Pressure : / mmHG Vent. Rate : 080 BPM Atrial Rate : 080 BPM P-R Int : 152 ms QRS Dur : 084 ms QT Int : 370 ms P-R-T Axes : 062 092 048 degrees QTc Int : 426 ms Normal sinus rhythm Possible Left atrial enlargement Rightward axis Borderline ECG No previous ECGs available Confirmed by Miah Olmos ([id number]) on 04/16/2019 11:39:17 AM Referred By: REFERRED SELF Confirmed By:Miah Olmos
== END 2019-04-16 11:32 | disposition home or self-care (01) ==
LOC: ED 06:53 → OR 11:15 → 3W 11:15 → INTOOBSV 13:22